=== PATIENT | male | born 1950 | race Caucasian/White ===

== ENCOUNTER 2019-02-20 14:32 | Inpatient (IN) ==
--- NOTE | 2019-02-20 15:38 | Diag Imaging Result Doc PS360 ---
EXAM: CHEST-2 VIEWS HISTORY: sob TECHNIQUE: Chest two views COMPARISON: 06/18/2014 FINDINGS: The lungs are well expanded. The heart is borderline mildly prominent although this is an AP upright exam. The vessels are not distended. There are no infiltrates. No pleural effusions. IMPRESSION: No acute abnormality. Electronically signed by Kris Cunningham 02/20/2019 3:36 PM
[2019-02-20 16:09] LABS: ALLEN TEST YES; BE 2.9 mmoll (-3.0-3.0); BLOOD TYPE ARTERIAL; HCO3-(ACT) 27.1 mmoll (20.0-26.0); METHB 0.9 % (0.0-1.5); O2(CT) 19.2 mL/dL (15.0-23.0); O2HB 93.9 % (95.0-99.0); PCO2(98.6) 49 mmHg (35-45); PO2(98.6) 79 mmHg (60-100); SAMPLE BLOOD; SAO2 96.6 % (95.0-100.0); THB 14.5 g/dL (11.5-17.4); pH(98.6) 7.38 (7.35-7.45)
[2019-02-20 16:10] LABS: MODALITY CANNULA
[2019-02-20 16:32] LABS: URINE SOURCE CLEAN CATCH
--- NOTE | 2019-02-20 16:34 | EKG Report ---
Test Performed on : 02/20/2019 4:22:57 PM Test Reason : syncope Blood Pressure : / mmHG Vent. Rate : 057 BPM Atrial Rate : 057 BPM P-R Int : 188 ms QRS Dur : 094 ms QT Int : 418 ms P-R-T Axes : 089 007 -03 degrees QTc Int : 406 ms Sinus bradycardia. with sinus arrhythmia. T wave abnormality, consider anterior ischemia Abnormal ECG When compared with ECG of 16-OCT-2012 14:26, Vent. rate has decreased BY 35 BPM T wave inversion now evident in Inferior leads T wave inversion now evident in Anterior leads Unconfirmed Result
[2019-02-20 16:43] LABS: BASO# 0.01 X1000 (0.0-0.2); BASO% 0.1 % (0.0-0.8); HEMATOCRIT 41.2 % (42.0-52.0); IMM GRAN# 0.07 X1000 (0.0-0.04); IMM GRAN% 0.7 % (0.0-0.5); LYMPH# 0.94 X1000 (1.2-3.4); LYMPH% 9.4 % (20.5-51.1); MCH 32.7 PG (27-31); MCV 96.3 FL (81-99); MONO# 0.81 X1000 (0.11-0.59); MONO% 8.1 % (1.7-9.3); MPV 10.6 FL (7.4-10.4); NEUT# 8.02 X1000 (1.4-6.5); NEUT% 80.7 % (42.2-75.2); PLT 179 X1000 (130-400); RBC 4.28 XMIL (4.7-6.1); RDW 13.2 % (11.5-14.5); WBC 9.95 X1000 (4.8-10.8)
[2019-02-20 16:48] LABS: BILIRUBIN URINE NEGATIVE (NEGATIVE); BLOOD URINE NEGATIVE (NEGATIVE); COLOR YELLOW; GLUCOSE URINE NEGATIVE (NEGATIVE); KETONE URINE NEGATIVE (NEGATIVE); LEUKOCYTES URINE NEGATIVE (NEGATIVE); NITRITE URINE NEGATIVE (NEGATIVE); PH URINE 5.5; PROTEIN URINE TRACE mg/dL (NEGATIVE); SP GRAVITY URINE 1.012; TURBIDITY URINE CLEAR (CLEAR); UROBILINOGEN URINE NORMAL (NORMAL)
[2019-02-20 16:49] LABS: UR EPITHELIAL CELLS <10 /HPF (<10); URINE BACTERIA NEGATIVE /HPF; URINE RBC <10 /HPF (<10); URINE WBC <10 /HPF (<10)
[2019-02-20 16:54] LABS: AGAP 9; ALB/GLOB RATIO 1.5; ALKALINE PHOSPHATASE 136 U/L (32-122); BUN 21 mg/dL (8-22); CALCIUM 10.3 mg/dL (8.8-10.2); CHLORIDE 95 mmol/L (98-107); CK PROFILE 98 U/L (24-204); COSMO 272; CREATININE 1.1 mg/dL (0.7-1.2); ESTIMATED GFR > 60; GLUCOSE 121 mg/dL (70-104); GOT 23 U/L (10-34); GPT 15 U/L (10-44); POTASSIUM 4.8 mmol/L (3.5-5.1); SODIUM 134 mmol/L (136-145); TCO2 30 mmol/L (25-35); TOTAL BILIRUBIN 0.31 mg/dL (0.20-1.00); TOTAL PROTEIN 6.6 g/dL (6.3-8.3)
[2019-02-20] MEDS ORDERED: NS 500 ML IV ONE (17:06)
--- NOTE | 2019-02-20 19:16 | Diag Imaging Result Doc PS360 ---
EXAM: CT HEAD W/O CONTRAST INDICATION: syncope TECHNIQUE: This exam was performed using automated exposure control, adjustment of mA or kV according to patient size, and/or use of iterative reconstruction technique. COMPARISON: None. FINDINGS: There is mild ventriculomegaly, likely related to atrophy. There is no definite acute infarct given the limited sensitivity of CT versus MRI. There is no discrete intracranial mass, mass effect, or intracranial hemorrhage. There is mild maxillary sinus mucosal thickening. Surrounding soft tissues and bony structures are essentially unremarkable, otherwise. IMPRESSION: Central brain atrophy as described. No definite acute intracranial pathology. Electronically signed by Kalia Hannah 02/20/2019 7:14 PM
--- NOTE | 2019-02-20 19:25 | Diag Imaging Result Doc PS360 ---
EXAM: CT ANGIOGRM PULMONARY ARTERIES INDICATION: sob TECHNIQUE: This exam was performed using automated exposure control, adjustment of mA or kV according to patient size, and/or use of iterative reconstruction technique. Thin section axial images and radial MIPS were obtained. COMPARISON: None. FINDINGS: There are multiple filling defects identified in the main pulmonary arteries and extending into the higher order branches consistent with acute pulmonary emboli. This includes a saddle embolus that extends from the right to the left pulmonary arteries. The clot burden is at least moderate. There is no evidence of aortic aneurysm or dissection. There is no cardiomegaly. There is trace paraseptal emphysema at the anterior peripheries of the upper lobes. No airspace consolidation is identified. There is no evidence of pulmonary infarct. There is no pleural fluid collection and no pneumothorax. Limited views of the upper abdomen are essentially unremarkable. IMPRESSION: Bilateral acute pulmonary emboli with a moderate clot burden as described and no evidence of pulmonary infarct. The findings were discussed with Angelica Ayoub, the cardiovascular technologist, to be immediately relayed to GRADY Tineo at 02/20/2019 7:22 PM Electronically signed by Kalia Hannah 02/20/2019 7:23 PM
[2019-02-20] MEDS ORDERED: LOVENOX 1 MG/KG SUBQ ONE (19:32)
[2019-02-20] MEDS ORDERED: LOVENOX SUBQ ONE (19:50)
--- NOTE | 2019-02-20 21:01 | PROVIDER DOCUMENTATION ---
This chart was entered by Rosa Maria Weber Scribe, acting as scribe for Blane Zamora CRNP. HPI-Syncope/Dizziness - General Chief Complaint: Syncope Stated Complaint: SYNCOPE Time Seen by Provider: 02/20/19 15:05 Source: patient, EMS Allergies/Adverse Reactions: Patient Allergies Allergy/AdvReac Type Severity Reaction Status Date / Time Penicillins Allergy Severe HIVES Verified 02/20/19 15:32 Home Medications: Home Medication List Medication Instructions Recorded Confirmed Last Taken Type Acetaminophen [Tylenol] 500 mg PO PRN PRN 10/16/12 02/20/19 02/16/19 History Aspirin EC 81 mg PO DAILY 10/16/12 02/20/19 02/20/19 History Calcium Carbonate/Vitamin D3 1 each PO BID 10/16/12 02/20/19 02/20/19 History [Oscal 500 + D] Glucosamine 1,000 mg PO BID 10/16/12 02/20/19 02/20/19 History LISINOpril [Prinivil] 10 mg PO DAILY 10/16/12 02/20/19 10/22/12 12:00 History Multivitamin [Multi-Day Vitamins] 1 each PO DAILY 10/16/12 02/20/19 10/22/12 12:00 History Omeprazole [Prilosec] 20 mg PO DAILY 10/16/12 02/20/19 10/22/12 12:00 History PRAVAstatin [Pravachol] 20 mg PO QHS 10/16/12 02/20/19 10/22/12 23:00 History Ranitidine [Zantac] 150 mg PO BID 10/16/12 02/20/19 10/22/12 23:00 History Terazosin [Hytrin] 5 mg PO QHS 10/16/12 02/20/19 02/19/19 History Escitalopram [Lexapro] 10 mg PO DAILY 02/20/19 02/20/19 02/19/19 History Furosemide 40 mg PO QAM 02/20/19 02/20/19 02/20/19 History Metoprolol Succinate E.r. [Toprol 1 tab PO DAILY 02/20/19 02/20/19 Unknown History Xl] Potassium Chloride E.r. [Klor-Con] 1 tab PO DAILY 02/20/19 02/20/19 Unknown History Pregabalin [Lyrica] 75 mg PO QHS 02/20/19 02/20/19 Unknown History Tizanidine [Zanaflex] 1 tab PO QHS 02/20/19 02/20/19 02/19/19 History Tramadol [Ultram] 1 tab PO Q6H PRN 02/20/19 02/20/19 02/19/19 History Triamterene/Hydrochlorothiazid 0.5 tab PO DAILY 02/20/19 02/20/19 Unknown History [Triamterene-Hctz 37.5-25 mg Cp] - History of Present Illness-Syncope/Dizzy Nature of Presenting Problem: Patient is a 68 year old male who presents to the ED via EMS after having a syncopal episode. Patient states he has been having shortness of breath with exertion for 3 days prior. EMS states patient's O2 sat was 84% on room air on their arrival. Patient denies using home O2. If witnessed syncope, by whom?: Prior Episodes: reports: single episode today Onset/Duration: reports: 1-3 hours ago (2 hours ago) Position/Activity at time of episode: reports: standing Symptoms prior to episode: reports: other (shortness of breath) Context: reports: lost consciousness Loss of Consciousness: prolonged (minutes) Current Symptoms: reports: short of breath Recently Seen Here or By Another Healthcare Provider: No Review of Systems - Adult - REVIEW OF SYSTEMS - ADULT ROS:: ROS per family () Constitutional: reports: no symptoms reported. denies: chills, fever, fatique Eyes: reports: no symptoms reported Ears, Nose, Mouth & Throat: reports: no symptoms reported Cardiovascular: reports: no symptoms reported Respiratory: reports: see HPI, shortness of breath. denies: cough, wheezing Gastrointestinal: reports: no symptoms reported Genitourinary: reports: no symptoms reported Musculoskeletal: reports: no symptoms reported Integumentary: reports: no symptoms reported Neurological: reports: see HPI, syncope. denies: dizziness/vertigo, headache/migraines, seizure Psychiatric: reports: no symptoms reported Endocrine: reports: no symptoms reported Hematologic/Lymphatic: reports: no symptoms reported Allergic/Immunologic: reports: no symptoms reported All Other Systems: Reviewed and Negative Past History - Adult - PAST MEDICAL HISTORY-ADULT Review of Records: reports: Old Records Reviewed, Nursing Assessment Review, Medications Reviewed, Social history reviewed & non-contributory. Major Childhood Illnesses: reports: denies history Cardiovascular: reports: HTN Respiratory: reports: denies history Gastrointestinal: reports: denies history Obstetrical/Gynecological: reports: denies history Genitourinary: reports: kidney disease, prostate cancer Musculoskeletal: reports: denies history Neurological: reports: denies history Endocrine/Immune: reports: denies history Other Conditions: reports: denies history - PRIOR SURGERIES/PROCEDURES Surgical/Procedure History: reports: reviewed, not pertinent - IMMUNIZATION STATUS Childhood Immunizations: See Nurse Assessment Flu Vaccine: See Nurse Assessment - FAMILY HISTORY Family History: reviewed, not pertinent - SOCIAL HISTORY Smoking: cigarettes, greater than 1 pack/day Provider spent 3-5 mins advising pt. on dangers of tobacco.: Discussed manners to quit use, and f/u contacts for add'l counseling. Substance Use: denies Living Situation: family Physical Exam-General - PHYSICAL EXAM-ADULT Initial Vital Signs Reviewed: Yes - CONSTITUTIONAL General Appearance: alert, no apparent distress, obese. negative: lethargic - HEAD, EARS, NOSE, MOUTH & THROAT HENMT: normocephalic/atraumatic, moist mucous membranes. negative: angioedema - RESPIRATORY Respiratory: chest non-tender, no respiratory distress, no accessory muscle use, decreased breath sounds (left), wheezing (right). negative: respiratory distress - CARDIOVASCULAR Cardiovascular: normal peripheral pulses, regular rate, rhythm. negative: tachycardia - GASTROINTESTINAL (ABDOMEN) Abdominal Exam: normal bowel sounds, non tender, soft. negative: guarding - LYMPHATIC Lymphatic: no adenopathy - MUSCULOSKELETAL Back Exam: normal inspection Extremity: non-tender, normal inspection. negative: deformity - SKIN Integumentary: normal color, normal turgor, warm/dry. negative: diaphoresis, rash - NEUROLOGIC Neurologic: grossly normal. negative: aphasia, facial droop - PSYCHIATRIC Psych/Mental Status: normal mood/affect, oriented x 3. negative: anxious Progress - PLAN OF CARE/RESULTS Progress/Plan/Lab Results: Vital Signs - 8 hr 02/20/19 14:45 02/20/19 15:11 02/20/19 16:14 Temperature 97.7 F 97.6 F Pulse Rate 67 68 Pulse Rate [Sitting] 76 Pulse Rate [Standing] 80 Pulse Rate [Supine] 69 Respiratory Rate 20 20 Blood Pressure 118/70 94/61 Blood Pressure [Sitting] 92/58 Blood Pressure [Standing] 94/61 Blood Pressure [Supine] 115/77 O2 Sat by Pulse Oximetry 91 L 95 02/20/19 17:32 02/20/19 19:00 02/20/19 19:03 Temperature Pulse Rate 63 60 Pulse Rate [Sitting] Pulse Rate [Standing] Pulse Rate [Supine] Respiratory Rate 14 14 Blood Pressure 120/77 114/66 Blood Pressure [Sitting] Blood Pressure [Standing] Blood Pressure [Supine] O2 Sat by Pulse Oximetry 95 96 99 02/20/19 19:10 02/20/19 19:20 02/20/19 19:30 Temperature Pulse Rate 66 56 L 56 L Pulse Rate [Sitting] Pulse Rate [Standing] Pulse Rate [Supine] Respiratory Rate 18 15 12 Blood Pressure Blood Pressure [Sitting] Blood Pressure [Standing] Blood Pressure [Supine] O2 Sat by Pulse Oximetry 97 98 98 02/20/19 19:32 02/20/19 19:40 02/20/19 19:50 Temperature Pulse Rate 55 L 90 57 L Pulse Rate [Sitting] Pulse Rate [Standing] Pulse Rate [Supine] Respiratory Rate 11 L 15 18 Blood Pressure 90/75 Blood Pressure [Sitting] Blood Pressure [Standing] Blood Pressure [Supine] O2 Sat by Pulse Oximetry 98 97 99 02/20/19 20:00 02/20/19 20:03 02/20/19 20:10 Temperature Pulse Rate 57 L 62 61 Pulse Rate [Sitting] Pulse Rate [Standing] Pulse Rate [Supine] Respiratory Rate 12 16 17 Blood Pressure 119/74 Blood Pressure [Sitting] Blood Pressure [Standing] Blood Pressure [Supine] O2 Sat by Pulse Oximetry 99 99 98 02/20/19 20:20 Temperature Pulse Rate 58 L Pulse Rate [Sitting] Pulse Rate [Standing] Pulse Rate [Supine] Respiratory Rate 12 Blood Pressure Blood Pressure [Sitting] Blood Pressure [Standing] Blood Pressure [Supine] O2 Sat by Pulse Oximetry 100 Laboratory Results - last 24 hr 02/20/19 02/20/19 02/20/19 15:55 15:59 15:59 WBC 9.95 RBC 4.28 L Hgb 14.0 Hct 41.2 L MCV 96.3 MCH 32.7 H MCHC 34.0 RDW Std Deviation 13.2 Plt Count 179 MPV 10.6 H Immature Gran % (Auto) 0.7 H Neut % (Auto) 80.7 H Lymph % (Auto) 9.4 L [place] % (Auto) 8.1 Eos % (Auto) 1.0 Baso % (Auto) 0.1 Immature Gran # (Auto) 0.07 H Neut # (Auto) 8.02 H Lymph # (Auto) 0.94 L [place] # (Auto) 0.81 H Eos # (Auto) 0.10 Baso # (Auto) 0.01 Specimen Type Sample Site pH pCO2 pO2 HCO3 Base Excess Oxyhemoglobin ABG O2 Sat (Calculated) ABG O2 Saturation ABG Carboxyhemoglobin ABG Methemoglobin Keith Test A-a O2 Difference Total Hemoglobin Lactate Liter Flow Blood Gas Modality FiO2 % Sodium 134 L Potassium 4.8 Chloride 95 L Carbon Dioxide 30 Anion Gap 9 BUN 21 Creatinine 1.1 Estimated GFR/1.73 m2 > 60 BUN/Creatinine Ratio 19 Glucose 121 H POC Glucose 107 H Calculated Osmolality 272 Calcium 10.3 H Total Bilirubin 0.31 AST 23 ALT 15 Alkaline Phosphatase 136 H Creatine Kinase 98 Troponin T Total Protein 6.6 Albumin 4.0 Globulin 2.6 Albumin/Globulin Ratio 1.5 Urine Source Urine Color Urine Turbidity Urine pH Ur Specific [place] Urine Protein Ur Glucose (Stick) Ur Ketones (Stick) Urine Blood Urine Nitrite Urine Bilirubin Urobilinogen Dipstick Urine Leukocytes Urine WBC (Auto) Urine RBC (Auto) U Epithel Cells (Auto) Urine Bacteria (Auto) 02/20/19 02/20/19 02/20/19 15:59 15:59 16:00 WBC RBC Hgb Hct MCV MCH MCHC RDW Std Deviation Plt Count MPV Immature Gran % (Auto) Neut % (Auto) Lymph % (Auto) [place] % (Auto) Eos % (Auto) Baso % (Auto) Immature Gran # (Auto) Neut # (Auto) Lymph # (Auto) [place] # (Auto) Eos # (Auto) Baso # (Auto) Specimen Type ARTERIAL Sample Site L RADIAL pH 7.38 pCO2 49 H pO2 79 HCO3 27.1 H Base Excess 2.9 Oxyhemoglobin 93.9 L ABG O2 Sat (Calculated) 19.2 ABG O2 Saturation 96.6 ABG Carboxyhemoglobin 1.90 ABG Methemoglobin 0.9 Keith Test YES A-a O2 Difference 116.0 Total Hemoglobin 14.5 Lactate 0.80 Liter Flow 4.0 Blood Gas Modality [place] FiO2 % 36.0 Sodium Potassium Chloride Carbon Dioxide Anion Gap BUN Creatinine Estimated GFR/1.73 m2 BUN/Creatinine Ratio Glucose POC Glucose Calculated Osmolality Calcium Total Bilirubin AST ALT Alkaline Phosphatase Creatine Kinase Troponin T < 0.010 Total Protein Albumin Globulin Albumin/Globulin Ratio Urine Source CLEAN CATCH Urine Color YELLOW Urine Turbidity CLEAR Urine pH 5.5 Ur Specific [place] 1.012 Urine Protein TRACE A Ur Glucose (Stick) NEGATIVE Ur Ketones (Stick) NEGATIVE Urine Blood NEGATIVE Urine Nitrite NEGATIVE Urine Bilirubin NEGATIVE Urobilinogen Dipstick NORMAL Urine Leukocytes NEGATIVE Urine WBC (Auto) <10 Urine RBC (Auto) <10 U Epithel Cells (Auto) <10 Urine Bacteria (Auto) NEGATIVE Orders Category Date Time Status Nursing- Obtain EKG ONCE Care 02/20/19 15:06 Active Orthostatic Vital Signs NOW Care 02/20/19 15:12 Active CHEST-2 VIEWS [RAD] Stat Exams 02/20/19 15:[address] ANGIOGRM PULMONARY ARTERIES [CT] Stat Exams 02/20/19 16:[address] HEAD W/O CONTRAST [CT] Stat Exams 02/20/19 16:26 Completed ABG [RESP] Routine Lab 02/20/19 16:00 Completed CBC WITH DIFF [HEME] Stat Lab 02/20/19 15:59 Completed CK PROFILE [SP CHEM] Stat Lab 02/20/19 15:59 Completed COMPREHENSIVE METABOLIC PANEL [CHEM] Stat Lab 02/20/19 15:59 Completed TROPONIN T Stat Lab 02/20/19 15:59 Completed URINALYSIS W/POSS RFLX CULT [URINALYSIS] Stat Lab 02/20/19 15:59 Completed 0.9% Sodium Chloride Inj [Ns] 500 ml Med 02/20/19 17:06 Discontinued IV 250 mls/hr Enoxaparin 1 mg/kg [Lovenox 1 mg/kg] Med 02/20/19 19:32 Discontinued 1 each SUBQ NOW ONE Enoxaparin [Lovenox] Med 02/20/19 19:50 Discontinued 120 mg SUBQ ONCE ONE EKG [EKG] Stat Ther 02/20/19 15:06 Draft Transfer/Admit Order [TRANSFER] Routine Transfer 02/20/19 20:48 Ordered Result Diagrams: 02/20/19 15:59 02/20/19 15:59 - REASSESSMENT Reassessment #1 Time Reassessed: 19:38 (reviewed results with pt and need for admission. Pt resting o2 sat 95% on 4L. BP 90/75) - EKG 1 Time of EKG reading by physician:: 16:22 EKG Read and Signed by:: Trace Morse EKG Interpretation (*Must complete 3 of following elements*): Abnormal Rate: 57 Rhythm: sinus bradycardia with sinus arrhythmia [place]: normal SD Interval: normal Comments: T wave abnormality, consider anterior ischemia - XRAY 1 XRAY Study: Chest Impression: See EMR Report ( EXAM: CHEST-2 VIEWS HISTORY: sob TECHNIQUE: Chest two views COMPARISON: 06/18/2014 FINDINGS: The lungs are well expanded. The heart is borderline mildly prominent although this is an AP upright exam. The vessels are not distended. There are no infiltrates. No pleural effusions. IMPRESSION: No acute abnormality. Electronically signed by Kris Cunningham 02/20/2019 3:36 PM 02/20/19 1536 Interpreting Physician: Kris Cunningham MD Dictated Date/Time: 02/20/19 1535 cc: Blane Zamora; Chandu Ruiz) - CT/MRI 1 CT Study: Head Impression: See EMR Report (FINDINGS: There is mild ventriculomegaly, likely related to atrophy. There is no definite acute infarct given the limited sensitivity of CT versus MRI. There is no discrete intracranial mass, mass effect, or intracranial hemorrhage. There is mild maxillary sinus mucosal thic kening. Surrounding soft tissues and bony structures are essentially unremarkable, otherwise. IMPRESSION: Central brain atrophy as described. No definite acute intracranial pathology.) - CONSULTS/PCP/HOSPITALIST Notification #1 *Consult/PCP/Hospitalist*: Dr Mondragon, hospitalist Time Discussed: 20:08 Consult Disposition: Admit Departure - Departure Date of Disposition Decision: 02/20/19 Time of Disposition Decision: 19:41 DIAGNOSIS: Saddle embolus, SOB (shortness of breath) Syncope Qualifiers: Syncope type: unspecified Qualified Code(s): R55 - Syncope and collapse Disposition: ADMITTED INPATIENT 09 Certified Medical Emergency: Emergent Condition: Fair - Critical Care Note This patient required my direct & personal management of CC.: Yes Total Time (mins): 40 Critical Care Statement: This patient required my direct personal management to treat or rule out processes, the absence of which, could potentiallly result in sudden, clinically significant life or limb threatening deterioration. Attestation - Physician/ NEHAL Attestation Patient care was provided by Advanced Practice Provider:: Yes Advanced Practice Provider:: Blane Zamora Advanced Practice Provider documentation review:: The Mid-level provider documentation, treatment plan and medical decision making was reviewed by the physician who agrees with all treatment and medical decision making by the MLP. The physician spent face to face time with patient:: No Advanced Practice Provider documentation review:: Supervising physician onsite and consulted in the evaluation and care of this patient. The physician did not have a face to face encounter with the patient. This chart was documented by the indicated scribe, (Rosa Maria Weber Scribe) and accurately reflects the services I performed and decisions made by , Blane Zamora, GRADY, as attested by the provider's signature.
--- NOTE | 2019-02-20 21:58 | HISTORY AND PHYSICAL ---
PRIMARY CARE PHYSICIAN: Dr. Chandu Ruiz. CHIEF COMPLAINT: Shortness of breath x3 weeks. HISTORY OF PRESENTING ILLNESS: A 68-year-old male, with a history of hypertension, hyperlipidemia, prostate cancer, depression, who had presented to the emergency department with 3 weeks history of having intermittent shortness of breath. The patient states over the past several days, it was worsening and he was having some chest discomfort, and subsequently had come to the emergency department. In the ED, he was evaluated and he was having episodes where he was somewhat going to collapse, and subsequently he underwent a CT angiogram. The results showed that he had bilateral pulmonary emboli. Subsequently, he will require admission to ICU for further evaluation and management. At the time of my examination, patient denied any headache, fever, chills, hemoptysis, melena, weight changes, but complained of shortness of breath and chest discomfort. PAST MEDICAL HISTORY: Includes: 1. Hypertension. 2. Hyperlipidemia. 3. Prostate cancer. 4. Depression. 5. GERD. PAST SURGICAL HISTORY: 1. Cholecystectomy. 2. Appendectomy. 3. Radical prostatectomy. ALLERGIES: Penicillin. CURRENT MEDICATIONS: 1. Acetaminophen 500 mg p.o. daily p.r.n. 2. Aspirin 81 mg p.o. daily. 3. Lexapro 10 mg p.o. daily. 4. Lasix 40 mg p.o. q.a.m. 5. Lisinopril 10 mg p.o. daily. 6. Metoprolol 50 mg p.o. daily. 7. Omeprazole 20 mg p.o. daily. 8. Pravastatin 20 mg p.o. at bedtime. 9. Lyrica 75 mg p.o. at bedtime. 10. Terazosin 5 mg p.o. at bedtime. 11. Zanaflex 4 mg p.o. at bedtime. 12. Ultram 50 mg p.o. q.6 hours. 13. Triamterene HCT 37.5/25 one/half tablet p.o. daily. SOCIAL HISTORY: No history of smoking. Admits to social alcohol use. Denies any illicit drug use. FAMILY HISTORY: No history of coronary disease. REVIEW OF SYSTEMS: A 14 point review of systems as listed in HPI. Other systems negative. PHYSICAL EXAMINATION: GENERAL: Cooperative, friendly male. He is resting more comfortably now. VITAL SIGNS: Temperature 97.6 degrees, pulse 68, respirations 20, blood pressure 94/61. HEENT: Atraumatic, normocephalic. Extraocular movements intact. PERRLA. NECK: No masses. CHEST: Clear to auscultation. CARDIOVASCULAR: Regular rate and rhythm. ABDOMEN: Soft. Positive bowel sounds. EXTREMITIES: +1 edema. NEUROLOGIC: He is awake, alert, oriented x3. : No bladder distention. SKIN: Warm. LABORATORIES AND STUDIES: WBC 9.95, hemoglobin 14.0, hematocrit 41.2, platelets 179,000. Sodium 134, potassium 4.8, chloride 95, CO2 is 30, BUN is 21, creatinine is 1.1, glucose is 121, troponin is 0.010. Pulmonary arteriogram shows bilateral acute pulmonary emboli with moderate clot burden. ASSESSMENT: This is a 68-year-old male with a history of hypertension, hyperlipidemia, prostate cancer, and gastroesophageal reflux disease, who had presented to the emergency department with a 3 week history of having intermittent shortness of breath. He was evaluated in the emergency department. He had a syncopal episode. He had a CT angiogram done which did show bilateral pulmonary emboli. Subsequently, he will require admission for further management. 1. Bilateral acute pulmonary emboli. 2. Hypertension. 3. Hyperlipidemia. 4. Gastroesophageal reflux disease. PLAN: 1. We will admit patient to ICU. 2. The patient will be started on Lovenox 1 mg/kg subcutaneously every 12 hours. 3. Check echocardiogram. 4. Will consult with motion picture director. 5. Will monitor blood pressure closely. 6. Restart his home medications. 7. Patient will be on Lovenox. 8. Will continue to follow and reassess, and make further recommendation based on patient's clinical course. cc: Jatinder Mondragon MD
[2019-02-20] MEDS ORDERED: PRAVACHOL PO SCH (22:31)
[2019-02-20] MEDS: PRAVACHOL PO SCH (23:31)
[2019-02-20] MEDS: HYTRIN PO SCH (23:31)
[2019-02-21 07:06] LABS: HEMATOCRIT 41.3 % (42.0-52.0); MCH 32.8 PG (27-31); MCHC 33.9 g/dL (33-37); MCV 96.7 FL (81-99); MPV 10.9 FL (7.4-10.4); PLT 183 X1000 (130-400); RBC 4.27 XMIL (4.7-6.1); RDW 13.1 % (11.5-14.5); WBC 10.17 X1000 (4.8-10.8)
[2019-02-21 07:07] LABS: BASO# 0.02 X1000 (0.0-0.2); BASO% 0.2 % (0.0-0.8); EOS# 0.14 X1000 (0.0-0.7); EOS% 1.4 % (0.0-10.0); IMM GRAN# 0.03 X1000 (0.0-0.04); IMM GRAN% 0.3 % (0.0-0.5); LYMPH# 1.74 X1000 (1.2-3.4); LYMPH% 17.1 % (20.5-51.1); MONO# 1.33 X1000 (0.11-0.59); MONO% 13.1 % (1.7-9.3); NEUT# 6.91 X1000 (1.4-6.5); NEUT% 67.9 % (42.2-75.2)
[2019-02-21 07:31] LABS: AGAP 15; BUN 17 mg/dL (8-22); CALCIUM 9.1 mg/dL (8.8-10.2); CHLORIDE 100 mmol/L (98-107); COSMO 279; CREATININE 0.8 mg/dL (0.7-1.2); ESTIMATED GFR > 60; GLUCOSE 92 mg/dL (70-104); POTASSIUM 4.2 mmol/L (3.5-5.1); SODIUM 139 mmol/L (136-145); TCO2 24 mmol/L (25-35)
[2019-02-21] MEDS ORDERED: LOVENOX SUBQ SCH (08:00)
[2019-02-21] MEDS: ZANTAC PO SCH ×3 (08:25→21:34)
[2019-02-21] MEDS: ASPIRIN EC PO SCH (08:25)
[2019-02-21] MEDS: PRILOSEC PO SCH (08:25)
[2019-02-21] MEDS: LEXAPRO PO SCH (08:25)
[2019-02-21] MEDS: LYRICA PO SCH ×2 (08:26→21:34)
[2019-02-21] MEDS ORDERED: LASIX PO SCH (09:00)
[2019-02-21] MEDS ORDERED: PRINIVIL PO SCH (09:00)
[2019-02-21] MEDS ORDERED: MORPHINE IV PRN (12:19)
--- NOTE | 2019-02-21 13:14 | PROGRESS NOTE ---
DATE: 02/21/2019 SUBJECTIVE: This morning Mr. Jacob referred to be doing slightly better. He has some cramps in his legs, but according to him, his shortness of breath is getting better. Mr. Jacob got admitted yesterday. After he went to use the restroom, he just passed out. He came to the emergency department where he was evaluated including a CT of the lungs which revealed bilateral PE with saddle. I have been told that he has bilateral lower extremity DVT's as well. OBJECTIVE: His current vitals, blood pressure is 122/80, pulse 70, respirations 18, and temperature is 97.8. General: Mr. Jacob is a 68-year-old elderly male. He is in bed in no distress. Mucosa is pink and moist. Anicteric. Acyanotic. Neck: Neck is supple. Lungs: Chest with good air entry bilaterally. There was no crepitations. No rhonchi. Cardiovascular: Regular rate and rhythm. Abdomen: Soft and distended globally, but nontender. There are some old scars on the anterior abdominal wall from previous laparoscopic surgeries. Extremities: No pedal edema. REGISTERED NURSE: Patient is awake, alert, and oriented. LABORATORY DATA: CBC is reviewed and is unremarkable. Chemistry is also reviewed, and is completely normal. Patient's pro B is 2772. Initial troponin which was done was unremarkable. CURRENT MEDICATIONS: Have all been reviewed. ASSESSMENT: 1. Syncope episode at home secondary to bilateral PE. 2. Bilateral PE with saddle associated with DVT's. The patient is currently on Lovenox therapeutic dose. 3. Hypertension controlled. Patient actually came in and had some readings which were low at some point. 4. Dyslipidemia. PLAN: So in general, Mr. Jacob had I understand bilateral DVT's and also moderate to severe clot burden in his lungs. He is currently on therapeutic Lovenox. His vitals seems to be stable. We have consulted Pulmonary Medicine. We have also consulted Surgery to evaluate for possible filter if indicated. Also, Heme Onc to evaluate him to rule out any underlying thrombophilic tendencies. Of note, Mr. Jacob has remote history of prostate cancer and is status post radical prostatectomy. cc: Freedom Clinton MD
[2019-02-21] MEDS: NORCO-5 PO PRN ×2 (16:35→20:25)
--- NOTE | 2019-02-21 17:07 | HEMO/ONC CONSULTATION ---
DATE: 02/21/2019 REASON FOR CONSULTATION: Saddle emboli with DVT. CHIEF COMPLAINT: Shortness of breath for approximately 3 weeks. HISTORY OF PRESENT ILLNESS: This is a 68-year-old male with a history of hypertension, hyperlipidemia, prostate cancer, and depression who presented to the emergency department with a 3- week history of intermittent shortness of breath. The patient has not had any recent immobilization. The patient states over the past several days it has worsened. He has had chest discomfort which finally brought him to the ED. He was feeling syncopal in the ED and had a CT angiogram. The results showed that he had bilateral pulmonary emboli. PAST MEDICAL HISTORY: Hypertension, hyperlipidemia, prostate cancer, depression, GERD. PAST SURGICAL HISTORY: Cholecystectomy, appendectomy, radical prostatectomy. ALLERGIES: Penicillin. CURRENT MEDICATIONS: Acetaminophen, aspirin, Lexapro, Lasix, lisinopril, metoprolol, omeprazole, pravastatin, Lyrica, terazosin, Zanaflex, Ultram, triamterene. SOCIAL HISTORY: Patient denies smoking. Admits to social alcohol use. Denies any illicit drug. REVIEW OF SYSTEMS: Negative other than what is mentioned in HPI. PHYSICAL EXAMINATION VITAL SIGNS: Temperature 97.8 degrees, pulse rate 69, respiratory rate 12, blood pressure 88/61, O2 saturation 100% on 4 L via nasal cannula, 6/10 bilateral foot pain. Cardiovascular: Normal S1, S2. Heart rate regular rhythm. Respiratory: Chest clear to auscultation. No signs of respiratory distress. Abdomen: Soft, nontender, without distention. Extremities: Have +1 edema. Skin: Warm, dry, and intact. LABORATORY: WBC 10.17, hemoglobin 14, hematocrit 41.3, platelet count 183,000. ANC 6.91. ProBNP 2,772. RADIOLOGY: CT angiogram pulmonary arteries shows bilateral acute pulmonary emboli with a moderate clot burden as described and no evidence of pulmonary infarct. Head CT: Central brain atrophy. No acute intracranial pathology. ASSESSMENT: 1. Bilateral pulmonary emboli moderate burden and saddle embolus. 2. Lower extremity DVT. 3. Right heart strain on ECHO PLAN: Dr. Avina suggested that the Lovenox be changed to heparin. He also requests that a retrievable IVC filter be placed for the patient. He has discussed this with Dr. Telles and Dr. Clinton. Continue to treat the patient medically. We will evaluate labs. We will continue to follow. Dictated by GRADY Guadalupe for Norman Avina MD cc: Norman Avina MD [facility]
[2019-02-21] MEDS ORDERED: HEPARIN IV SCH (18:00)
[2019-02-21] MEDS ORDERED: [UNRECOGNIZED DRUG - OTHER] IV SCH (18:00)
[2019-02-21] MEDS ORDERED: HEPARIN IV ONE (18:40)
[2019-02-21] MEDS: ULTRAM PO PRN (19:47)
--- NOTE | 2019-02-21 21:02 | CONSULTATION ---
DATE OF CONSULTATION: 02/21/2019 REQUESTING PROVIDER: Dr. Jatinder Mondragon. REASON FOR CONSULTATION: Pulmonary embolism. HISTORY OF PRESENT ILLNESS: This is a 68-year-old male with a medical history of hypertension, hyperlipidemia, prostate cancer, depression and gastroesophageal reflux disease. He presented to the ER yesterday afternoon via EMS with one episode of syncope and acute dyspnea on exertion for 3 days. Initial workup in the ER revealed bilateral acute pulmonary emboli with moderate clot burden, including a saddle embolus that extends from the right to the left pulmonary arterials. He has been admitted to the ICU for further evaluation and management. The patient currently is lying in bed, with no acute distress. He received Lovenox 1 mg/kg once yesterday and 120 mg Lovenox this morning. He reports chronic bilateral lower extremity pitting edema with burning sensation. He also has intermittent coughing spells and he already had several episodes of vomiting because of coughing spells. He reports palpitations but no chest pain, wheezing, hemoptysis, fever, chills or noticeable weight change. PAST MEDICAL HISTORY: 1. Hypertension. 2. Hyperlipidemia. 3. Prostate cancer, status post radiation and radical retropubic prostatectomy on 10/23/[address] Moreno. 4. Depression. 5. Gastroesophageal reflux disease. PAST SURGICAL HISTORY: 1. Cholecystectomy. 2. Appendectomy. 3. Radical retropubic prostatectomy on 10/23/[address] Moreno. SOCIAL HISTORY: The patient lives at home with his . He used to smoke daily 1 pack a day for about 40 years, and he quit smoking 5-6 years ago. He drinks once in a while, and he did get drunk before but he denies binge drinking. He has no history of illicit drug use. He has 1 dog indoors as a pet for about 4 years. FAMILY HISTORY: Reviewed and noncontributory. ALLERGIES: Penicillin. REVIEW OF SYSTEMS: A 10-point review of systems was conducted and the pertinence is listed within the HPI, otherwise noncontributory. PHYSICAL EXAMINATION: Vital signs: Temperature 98.6, blood pressure 101/77, pulse 62, respiratory rate 14, oxygen saturation 100% on nasal cannula at 4 L.General: Pleasant and cooperative, resting in bed with no acute distress. HEENT: Atraumatic, normocephalic. Trachea midline. Mucosa pink and moist. Respiratory: Even and unlabored. Symmetrical excursion. Auscultation revealed mild diffuse anterior expiratory wheezing, mainly on the left side of the lung. Cardiovascular: Regular rate and rhythm. Gastrointestinal: Soft, nontender. Distended, obese. Normoactive bowel sounds in all 4 quadrants. Extremities: Bilateral lower extremity trace edema. Bilateral feet pink and warm to touch. No cyanosis. No clubbing. Dorsalis pedis 1+ bilaterally. Neurologic: Alert and oriented x3. Speech fluent. Follows commands. LABORATORY DATA: White blood cells 10.17, hemoglobin 14.0, hematocrit 41.3, platelets 183,000. Sodium 139, potassium 4.2, chloride 100, carbon dioxide 24, BUN 17, creatinine 0.8, glucose 92. ProBNP 2772. ASSESSMENT: This is a 68-year-old male with medical history of hypertension, hyperlipidemia, prostate cancer, depression and gastroesophageal reflux disease. He has been admitted to the intensive care unit with bilateral acute pulmonary emboli. 1. Acute hypoxic respiratory failure. 2. Syncopal episode at home. 3. Bilateral pulmonary emboli with saddle. 4. Left lower extremity deep venous thrombosis. PLAN: 1. Continue supplemental oxygen. 2. Currently patient on Lovenox 120 mg twice a day. 3. Follow up with labs including PT gene mutation, protein S and C activity, lupus inhibitor, factor V Leiden and antithrombin III activity. 4. Continue GI prophylaxis. 5. Further recommendations pending hospital course. Thank you for the courtesy of this consult. Dictated by GRADY Rivera for Acacia Hilario MD cc: GRADY Rivera MD [facility]
[2019-02-21] MEDS: HYTRIN PO SCH (21:33)
[2019-02-21] MEDS: PRAVACHOL PO SCH (21:34)
--- NOTE | 2019-02-22 00:22 | ECHO REPORT ---
ORDER DATE: 02/20/2019 MEASUREMENTS: Left ventricular internal diameter in diastole 5.1. Aortic root 3.3. Left atrium 4.0. SUMMARY: 1. Technically difficult study due to limited acoustic window quality. 2. Aortic valve was without evidence of structural abnormality and appears to open adequately on 2-dimensional images. Peak gradient across the aortic valve is approximately 10 mmHg. Mitral and tricuspid valves are without evidence of structural abnormality, while pulmonic valve was not well demonstrated. There is mild tricuspid regurgitation. Estimated systolic PA pressure by Doppler is 95 mmHg, suggesting severe pulmonary hypertension. Aortic root is normal in size. 3. Normal left ventricular chamber size with mild concentric left hypertrophy suggested. Estimated left ejection fraction appears to be at least 65%. No regional wall motion abnormalities are evident. Left atrium is borderline enlarged. Right atrium is mildly enlarged. Right ventricle is moderately enlarged with reduced right ventricular systolic function. 4. No pericardial effusion. 5. Appearance of inferior vena cava suggests elevated central venous pressure. CONCLUSIONS: 1. Technically difficult study. 2. Mild tricuspid regurgitation with severe pulmonary hypertension by Doppler. 3. Mild concentric left hypertrophy with estimated left ejection fraction at least 65%. 4. Borderline left atrial enlargement. 5. Mild right atrial enlargement and moderate right ventricular enlargement with diminished right ventricular systolic function. 6. Elevated central venous pressure is suggested. cc: MD Jatinder Blake MD
[2019-02-22 05:46] LABS: HEMATOCRIT 45.8 % (42.0-52.0); HEMOGLOBIN 15.6 g/dL (14.0-18.0); MCH 32.6 PG (27-31); MCHC 34.1 g/dL (33-37); MCV 95.8 FL (81-99); MPV 10.7 FL (7.4-10.4); RBC 4.78 XMIL (4.7-6.1); RDW 13.3 % (11.5-14.5); WBC 9.72 X1000 (4.8-10.8)
[2019-02-22 06:57] LABS: AGAP 14; ALBUMIN 3.6 g/dL (3.5-5.0); ALKALINE PHOSPHATASE 135 U/L (32-122); BUN 19 mg/dL (8-22); CALCIUM 9.4 mg/dL (8.8-10.2); CHLORIDE 93 mmol/L (98-107); COSMO 273; CREATININE 0.8 mg/dL (0.7-1.2); ESTIMATED GFR > 60; GLUCOSE 117 mg/dL (70-104); GOT 19 U/L (10-34); GPT 12 U/L (10-44); POTASSIUM 3.2 mmol/L (3.5-5.1); SODIUM 135 mmol/L (136-145); TCO2 28 mmol/L (25-35); TOTAL BILIRUBIN 0.57 mg/dL (0.20-1.00); TOTAL PROTEIN 7.2 g/dL (6.3-8.3)
[2019-02-22] MEDS: ZANTAC PO SCH ×2 (08:45→20:35)
[2019-02-22] MEDS: NORCO-5 PO PRN ×3 (08:45→20:34)
[2019-02-22] MEDS: ASPIRIN EC PO SCH (08:46)
[2019-02-22] MEDS: LEXAPRO PO SCH (08:46)
[2019-02-22] MEDS: PRILOSEC PO SCH (08:46)
--- NOTE | 2019-02-22 11:51 | PROGRESS NOTE ---
DATE: 02/22/2019 SUBJECTIVE: This morning Mr. Jacob referred to be doing a whole lot better. No chest pain. No shortness of breath. He did complain of some cough, but no bloody expectoration. He also had mild bleeding through the nose. OBJECTIVE: Vital signs: Blood pressure is 114/78, pulse of 92, respirations 20, temperature 99.0 degrees, patient was saturating about 94% on 4 L of nasal cannula. General exam: Mr. Jacob is a 68-year-old gentleman. He is in bed in no distress. HEENT: Mucosa is pink and moist. Anicteric. Acyanotic. Neck: Supple. Chest: Good air entry bilateral. No crepitations. No rhonchi. Cardiovascular: Regular rate and rhythm. GI: Abdomen is soft. It is globally distended, but nontender. Some old scars on the anterior abdominal wall from previous laparoscopic surgeries. Extremities: No pedal edema. MASTER BAKER: Patient is awake, alert and oriented. There is no focal neurological deficit. LABORATORY DATA: CBC is reviewed and is normal. The patient has a PTT this morning that was more than 250 and heparin was withheld. Chemistry is also reviewed. Sodium is 135, potassium is 3.2. Rest of chemistry is normal. IMAGING STUDIES: An echocardiogram has been reviewed. The patient did have ejection fraction of 65% with mild left hypertrophy. There is also moderate right ventricular enlargement with diminished right ventricle systolic function. ASSESSMENT: 1. Syncope. Episode at home, secondary to pulmonary embolus. 2. Bilateral pulmonary embolus with saddle associated with deep vein thrombosis. Patient is currently on transition to heparin drip. 3. Hypertension, controlled. 4. Dyslipidemia. 5. Right heart failure secondary to massive pulmonary embolus noted. We will try to avoid hypotension and dehydration in this patient due to the right heart failure. PLAN: So for today we are going to continue with the heparin drip. Mr. Jacob will continue to be in the ICU. Hopefully after 24 hours, we will be able to transition him to oral anticoagulation. The patient has been evaluated by Hem-Onc, Pulmonary Medicine and Surgery at this point. Of note, I was able to reach out to Dr. Choi yesterday, who is the ICU attendant in [facility], to see if they would want to get Mr. Jacob over there for any further interventions. His recommendation was that since the patient is already on Lovenox, was on anticoagulation that was all that needed to be done, and that he did not think transfer was necessary. I also reached out to [facility] yesterday. Unfortunately, at that time, there was no bed. For now I think Mr. Jacob is not hypotensive anymore. He is clinically stable, so we will continue with the anticoagulation. cc: Freedom Clinton MD
[2019-02-22] MEDS: HEPARIN IV SCH (12:24)
[2019-02-22] MEDS: [UNRECOGNIZED DRUG - OTHER] IV SCH (12:24)
--- NOTE | 2019-02-22 12:36 | HEMO/ONC PROGRESS NOTE ---
DATE: 02/22/2019 SUBJECTIVE: Mr. Jacob is sitting up in bed this morning, finishing his breakfast. He states his appetite is good. He states he is less short of breath than he was yesterday. He feels he has had some improvement. He denies any significant complaint. He had no acute events overnight. OBJECTIVE: VITAL SIGNS: Temperature 99 degrees, pulse rate 92, respiratory rate 20, blood pressure 114/78, O2 saturation 94% on nasal cannula at 4 L. He is in 0/10 pain. PHYSICAL EXAMINATION: General: Awake, alert, and oriented, in no acute distress. Well- developed, well-nourished. Skin: Warm, dry, and pale. No rashes or significant lesions noted. It is noted that the patient has small wounds on his hands and feet. HEENT: Sclerae is anicteric. PERRLA. Oral mucosa is pink and moist. Cardiovascular: Normal S1, S2. Heart rate and rhythm is regular. Respiratory: Lung sounds are clear. No adventitious breath sounds noted. No signs of respiratory distress. Gastrointestinal: Abdomen is soft, nontender. It is distended. Extremities: No edema noted. Neurological: No focal motor deficits noted. LABORATORY DATA: WBCs 9.72, hemoglobin 15.6, hematocrit 45.8, platelet count 194,000. Sodium 135, potassium 3.2, alkaline phosphatase 135. ASSESSMENT: 1. Bilateral pulmonary embolus with saddle associated with deep vein thrombosis. PLAN: The patient remains on IV heparin. We will continue to follow the patient and wait on hypercoag work up results. Dictated by GRADY Guadalupe for Norman Avina MD cc: Norman Avina MD [facility]
--- NOTE | 2019-02-22 18:32 | CONSULTATION ---
DATE OF CONSULTATION: 02/22/2019 SUBJECTIVE: Mr. Vipin Jacob is a 68-year-old, white male, who was admitted to our ICU with shortness of breath and chest pain, and a CT angiogram which suggests pulmonary emboli. There is also evidence that he has a deep venous thrombosis involving both of his lower extremities. We were asked to evaluate him for possible inferior vena cava filter. PAST MEDICAL HISTORY: High blood pressure, prostate cancer, gastroesophageal reflux disease. PAST SURGICAL HISTORY: Cholecystectomy, appendectomy, radical prostatectomy, a history of prostate cancer. ALLERGIES: Penicillin. MEDICATIONS: He is on multiple medications, which include aspirin, Lexapro, Lasix, lisinopril, metoprolol, omeprazole, pravastatin, Lyrica, terazosin, Zanaflex, Ultram, and triamterene. SOCIAL HISTORY: No smoking. Social alcohol use. His brother was sitting at the bedside in the ICU. FAMILY HISTORY: Coronary disease. REVIEW OF SYSTEMS: A 14-point review of systems was performed and was essentially negative, except for the history of present illness. PHYSICAL EXAMINATION: He is in our ICU. He is awake, cooperative, sitting up, has mild shortness of breath. He is hemodynamically satisfactory. No jaundice. He wears a hurt. No oral lesions. No cervical or supraclavicular lymphadenopathy. His heart has a regular rate. Lungs are mostly clear to auscultation. His abdomen is soft without tenderness. No costovertebral tenderness. Rectal exam was not performed. He does have palpable femoral pulses. He has bilateral lower extremity edema. Neurologically, he has no focal deficits. IMPRESSION: Pulmonary emboli, symptomatic, with evidence of a deep venous thrombosis of both lower extremities. PLAN: He is on IV heparin drip and clinically he is improving. He has no contraindication to anticoagulation, and for that reason, we will not proceed with inferior vena cava filter, but recommend treating as you are with IV heparin and then converting it to a p.o. blood thinner. He is also being checked for any hypercoagulable state. cc: Irish Telles MD
[2019-02-22] MEDS: LYRICA PO SCH (20:35)
[2019-02-22] MEDS: PRAVACHOL PO SCH (20:35)
[2019-02-22] MEDS: HYTRIN PO SCH (21:56)
[2019-02-23 05:07] LABS: HEMATOCRIT 40.6 % (42.0-52.0); MCH 32.9 PG (27-31); MCHC 34.5 g/dL (33-37); MCV 95.3 FL (81-99); MPV 10.2 FL (7.4-10.4); RBC 4.26 XMIL (4.7-6.1); RDW 12.8 % (11.5-14.5); WBC 6.91 X1000 (4.8-10.8)
[2019-02-23] MEDS: NORCO-5 PO PRN ×3 (06:03→23:36)
[2019-02-23] MEDS: LEXAPRO PO SCH (08:44)
[2019-02-23] MEDS: PRILOSEC PO SCH (08:44)
[2019-02-23] MEDS: ZANTAC PO SCH ×2 (08:44→20:04)
--- NOTE | 2019-02-23 09:08 | HEMO/ONC PROGRESS NOTE ---
DATE: 02/23/2019 SUBJECTIVE: Mr. Jacob is awake and alert this morning, eating his breakfast. He states his appetite remains good. He feels okay this morning. He had no significant complaints. He had no acute events overnight. OBJECTIVE: Vital signs: Temperature 98.2 degrees, pulse rate 74, respiratory rate 14, blood pressure 112/66, O2 saturation 97 on 4 L via nasal cannula. He is in 5/10 left foot pain. General: He is awake, alert and oriented, in no acute distress. Well developed, well nourished. Skin: Warm, dry, and pale. No jaundice. No rashes or significant lesions noted. He does not have small abrasions to his hands and feet. HEENT: Sclera is anicteric. PERRLA. Oral mucosa is pink and moist. Cardiovascular: Normal S1, S2. Heart rate and rhythm is regular. Respiratory: Lung sounds are clear. No adventitious breath sounds noted. No signs of respiratory distress. Mild shortness of breath with exertion. Gastrointestinal: Abdomen is soft, nontender, with mild distention. Neurological: No focal motor deficits. LABORATORY DATA: WBC 6.91, hemoglobin 14.0, hematocrit 40.6, platelet count 182,000. ASSESSMENT: Bilateral saddle pulmonary embolus with deep vein thrombosis. PLAN: Keep the patient on IV heparin. Convert to Xarelto when appropriate. We will continue to monitor and evaluate labs. Please call if needed over the weekend. Dictated by GRADY Guadalupe for Norman Avina MD Patient seen and examined. Patient continues to make progress. Discussed with Dr. Clinton. Continue parenteral anticoagulation and plan to change to Xarelto on Tuesday. Norman Avina M.D. cc: Norman Avina [facility]ORE[facility]
--- NOTE | 2019-02-23 11:41 | PROGRESS NOTE ---
DATE: 02/23/2019 SUBJECTIVE: This morning Mr. Jacob refers to be doing a whole lot better. No new complaints. No chest pain, shortness of breath is improving, and has not been bleeding from anywhere. OBJECTIVE: Vital signs: Blood pressure is 112/66, pulse of 74, respiration is 14, temperature is 98.2 degrees. General: Mr. Jacob is a 68-year-old gentleman. He is in bed in no distress. HEENT: Mucosa is pink and moist. Anicteric. Acyanotic. Neck: Supple. Chest: Good air entry bilaterally. A few crackles posteriorly. Cardiovascular: Regular rate and rhythm. No murmurs, no rubs, no gallops. GI: Abdomen is soft, globally distended, but nontender. Bowel sounds present. Extremities: No pedal edema. METEOROLOGICAL ENGINEER: Patient is awake, alert and oriented. LABORATORY DATA: CBC is reviewed, is unremarkable. Chemistry is also reviewed. Potassium is 3.2. Rest of chemistry is unremarkable. The patient's PTT is 81.8. ASSESSMENT: 1. Syncope and collapse at home secondary to hypotension from pulmonary embolus. 2. Bilateral pulmonary embolus with saddle associated with deep vein thrombosis and right heart failure. The patient is on heparin drip. 3. Hypertension, controlled. 4. Dyslipidemia, controlled. 5. Acute right heart failure secondary to massive bilateral pulmonary embolus, stable. PLAN: So, in general, I think Mr. Jacob is doing fairly stable. We are going to discontinue the Finley catheter. We are going to transfer him from the ICU to [facility]. He is going to continue with the heparin drip throughout the weekend, and get him on hopefully Xarelto or Eliquis on Tuesday. I have discussed this plan with the patient. He is in agreement. I have also spoken with Dr. Avina who is the Hem/Onc on board, and he is okay with the plan. cc: Freedom Clinton MD
[2019-02-23] MEDS: HEPARIN IV SCH (13:57)
[2019-02-23] MEDS: [UNRECOGNIZED DRUG - OTHER] IV SCH (13:57)
--- NOTE | 2019-02-23 15:55 | PULMONOLOGY PROGRESS NOTE ---
DATE: 02/23/2019 SUBJECTIVE: The patient is awake, alert, and conversant. He denies shortness of breath. He denies chest pain. He is tolerating p.o. intake. OBJECTIVE: Vital signs: The patient has been afebrile for the last 24 hours, blood pressure 130/72, heart rate 93, respiratory rate 16, oxygen saturation 92% on Venturi mask. HEENT: Pupils are equal and reactive. Oropharynx appears clear. Neck: Supple. Chest: Reveals mild decreased breath sounds in the lung bases. Cardiac exam: S1, S2. Abdomen: Obese and soft. Extremities: Reveal trace to 1+ pretibial edema. LABORATORY: Sodium 135, potassium 3.2, chloride 93, bicarbonate 28, BUN 19, creatinine 0.8. White blood count 6.91, hemoglobin 14.0, platelet count 182,000. IMPRESSION: A 68-year-old with: 1. Pulmonary embolus. 2. Acute hypoxemic respiratory failure. 3. Morbid obesity. DISCUSSION: A 68-year-old with problems outlined above. He reports his shortness of breath has diminished or is resolving. RECOMMENDATIONS: 1. Agree with plans for transfer to the floor as outlined by the Hospitalist service. 2. Wean oxygen for hypoxemic respiratory failure as tolerated. 3. Agree with transitioning patient to Xarelto or Eliquis in the near future. cc: Giancarlo Lucas MD
[2019-02-23] MEDS: ULTRAM PO PRN (19:10)
[2019-02-23] MEDS: HYTRIN PO SCH (20:04)
[2019-02-23] MEDS: LYRICA PO SCH (20:04)
[2019-02-23] MEDS: PRAVACHOL PO SCH (20:04)
[2019-02-24 03:54] LABS: HEMATOCRIT 41.5 % (42.0-52.0); HEMOGLOBIN 13.9 g/dL (14.0-18.0); MCH 32.5 PG (27-31); MCHC 33.5 g/dL (33-37); MPV 10.1 FL (7.4-10.4); RBC 4.28 XMIL (4.7-6.1); RDW 12.8 % (11.5-14.5); WBC 6.46 X1000 (4.8-10.8)
[2019-02-24] MEDS: ZANTAC PO SCH ×2 (08:11→20:55)
[2019-02-24] MEDS: LEXAPRO PO SCH (08:11)
[2019-02-24] MEDS: PRILOSEC PO SCH (08:12)
[2019-02-24] MEDS: NORCO-5 PO PRN ×3 (08:12→16:32)
[2019-02-24] MEDS: HEPARIN IV SCH (10:12)
[2019-02-24] MEDS: [UNRECOGNIZED DRUG - OTHER] IV SCH (10:12)
--- NOTE | 2019-02-24 13:12 | HEMO/ONC PROGRESS NOTE ---
DATE: 02/24/2019 HISTORY OF PRESENT ILLNESS: Mr. Jacob is awake and alert this morning, comfortable in bed, watching TV. He denies any complaints. He denies any shortness of breath while lying still on his bed. He states his shortness of breath occurs when he exerts himself in order to sit up or get up. He says otherwise he feels well controlled. He does remain on nasal cannula O2. He is continuing bedrest. He states his appetite is good. He denies any complaints. He had no significant events overnight. OBJECTIVE: Vital signs: Temperature is 97.8, pulse rate 85, respiratory rate 17, blood pressure 152/77, O2 saturation is 94% on 2 L by nasal cannula. He is in 3/10 bilateral foot pain. General: This is a chronically ill appearing gentleman. He is obese with a BMI of 38.8. Awake, alert and oriented, in no acute distress. Skin: Warm, dry, pale. No jaundice noted. No rashes or significant lesions. He does have small abrasions to his hands and feet. ENT: Sclerae is anicteric. PERRLA. Oral mucosa is pink and moist. Cardiovascular: Normal S1 and S2. Heart rate and rhythm are clear. Respiratory: Lung sounds are clear. No adventitious breath sounds noted. No signs of respiratory distress. Mild shortness of breath with exertion. Gastrointestinal: Abdomen is significantly protuberant, distended, soft. Nontender to palpation. Neurologic: No focal motor deficits. DIAGNOSTIC DATA: WBC is 6.46, hemoglobin 13.9, hematocrit 41.5, platelet count 202. ASSESSMENT: 1. Bilateral saddle pulmonary emboli with deep vein thrombosis. 2. Acute hypoxemic respiratory failure. 3. Morbid obesity. PLAN: The patient will remain on IV heparin over the weekend. The patient will be converted to Xarelto possibly Tuesday with a possible discharge as well. We will continue to monitor over the weekend. Keep the patient on bedrest at this time. Dictated by GRADY Guadalupe for Norman Avina MD cc: Norman Avina MD
--- NOTE | 2019-02-24 14:03 | PROGRESS NOTE ---
DATE: 02/24/2019 SUBJECTIVE: This morning Mr. Jacob refers to be doing okay, denies any new complaints. No bleeding. OBJECTIVE: Vital: Blood pressure is 156/78, pulse of 72, respirations 17, temperature is 97.8 degrees. General: Mr. Jacob is a 68-year-old male. He is in bed, in no distress. HEENT: Mucosa is pink and moist. Anicteric. Acyanotic. Neck: Supple. Chest: Clear to auscultation. No crepitations. No rhonchi. Cardiovascular: Regular rate and rhythm. Abdomen: Soft. Extremities: No pedal edema. APPLICATIONS SUPPORT ANALYST: The patient is awake, alert, and oriented. There is no focal neurologic deficit. LABORATORY DATA: The patient's PTT is 88.0. ASSESSMENT: 1. Syncope and collapse at home secondary to PE-induced hypotension. 2. Bilateral PE with saddle characteristics associated with DVTs and right heart failure. The patient is on heparin drip. 3. Hypertension, controlled. 4. Dyslipidemia. 5. Acute right heart failure secondary to massive bilateral PE. PLAN: For now we are going to continue with the heparin drip. There is a plan to transition to oral anticoagulant on Tuesday and discharge the patient. So far, the thrombophilic workup result that we have is all negative. cc: Freedom Clinton MD
--- NOTE | 2019-02-24 19:50 | PULMONOLOGY PROGRESS NOTE ---
DATE: 02/24/2019 SUBJECTIVE: The patient is awake, alert, and conversant. He denies shortness of breath. He is without new complaints. OBJECTIVE: Blood pressure 152/77, heart rate 85, respiratory rate 17, oxygen saturation 94% on 2 L per nasal cannula.HEENT: Pupils are equal and reactive. Oropharynx appears clear. Neck is supple. Chest reveals good air entry bilaterally without wheezing or rhonchi. Cardiac exam: S1, S2. Abdomen is soft. Extremities reveal trace edema. LABORATORY DATA: White blood count 6.46, hemoglobin 13.9, platelet count 202,000. IMPRESSION: A 68-year-old with: 1. Pulmonary embolus. 2. Acute hypoxemic respiratory failure. 3. Morbid obesity. PLAN: 1. Agree with plans to transition the patient to an oral anticoagulation as outlined by Oncology/Hematology. 2. Wean oxygen as tolerated. 3. Long-term, the patient would benefit from weight loss. cc: Giancarlo Lucas MD
[2019-02-24] MEDS: LYRICA PO SCH (20:55)
[2019-02-24] MEDS: HYTRIN PO SCH (20:55)
[2019-02-24] MEDS: PRAVACHOL PO SCH (20:55)
[2019-02-24] MEDS: ULTRAM PO PRN (20:55)
[2019-02-25] MEDS: PRILOSEC PO SCH ×2 (07:51→09:26)
[2019-02-25] MEDS: LEXAPRO PO SCH ×2 (07:51→09:26)
[2019-02-25] MEDS: ZANTAC PO SCH ×3 (07:51→20:32)
[2019-02-25] MEDS: NORCO-5 PO PRN ×2 (07:51→19:00)
[2019-02-25] MEDS: HEPARIN IV SCH (07:52)
[2019-02-25] MEDS: [UNRECOGNIZED DRUG - OTHER] IV SCH (07:52)
--- NOTE | 2019-02-25 11:42 | PROGRESS NOTE ---
DATE: 02/25/2019 SUBJECTIVE: This morning Mr. Jacob refers to be doing okay. No new complaints except some cramping in the lower extremity. The nurses were concerned; his feet were remarkably cold, especially the right lower extremity. OBJECTIVELY: Vitals: Blood pressure is 148/97, pulse of 93, respiration is 18, temperature is 97.6 degrees. General Examination: Mr. Jacob is a 68-year-old gentleman. He is in bed. No distress. HEENT: Mucosa is pink and moist. Anicteric. Acyanotic. Neck: Supple. Chest: Clear to auscultation. No crepitations. No rhonchi. No accessory muscle use. Chest: Good air entry bilateral. Gastrointestinal: Abdomen is soft. It is globally distended but nontender. Bowel sounds are present. No hepatosplenomegaly. Central Nervous System: Patient is awake, alert, and oriented. Musculoskeletal: Lower extremities: No edema. However, they look slightly more congested. The right lower extremity has no pulse on the pedis. Extremely low palpable pulse on the posterior tibialis. The left lower extremity pulses are present, but remarkably low. LABORATORY DATA: PTT is 65.9, which is within the therapeutic range. ASSESSMENT: 1. Syncope and collapse at home secondary to pulmonary emboli-induced hypotension. 2. Bilateral pulmonary emboli with saddle characteristics associated with deep vein thrombosis and right heart strain. Patient is on heparin drip. There is a plan to transition him to p.o. Xarelto tomorrow. 3. Hypertension, controlled. 4. Dyslipidemia. 5. Bilateral lower extremity deep vein thromboses. 6. Acute right heart failure secondary to massive bilateral pulmonary emboli. 7. Imperceptible right lower extremity distal pulses. We will get a duplex ultrasound to check on this. Patient is on heparin drip at this point anyway. cc: Freedom Clinton MD
--- NOTE | 2019-02-25 13:36 | HEMO/ONC PROGRESS NOTE ---
DATE: 02/25/2019 HISTORY OF PRESENT ILLNESS: Mr. Jacob is awake and alert this morning. He remains in bed. He denies shortness of breath. It was noted by the nurses this morning that his feet were extremely cold, particularly his right foot. His right foot has no pedal pulse, extremely low palpable pulse on the posterior tibialis. Left lower extremity pulses are present but low. The patient's states his feet feel like they are burning. They do not feel cold to him. OBJECTIVE: Vital Signs: Temperature 98.2 degrees, pulse rate 85, respiratory rate 17, blood pressure 147/69, O2 saturation 96% on nasal cannula at 2 L. He is in 3/10 bilateral foot pain. Physical Examination: General: A chronically ill-appearing, obese gentleman in no acute distress. HEENT: Mucosa is pink and moist. Eyes are anicteric. Chest: Clear to auscultation. No signs of respiratory distress. Cardiovascular: Normal S1, S2. Heart rate and rhythm regular. Gastrointestinal: Abdomen is protuberant, soft, nontender. Bowel sounds present. Musculoskeletal: Lower extremities show no signs of edema. The soles of his feet are erythemic. Right lower extremity has no pedal pole and a weak posterior tibialis pulse. Left extremity has weak pulses. Both feet are extremely cold, more so on the right. Laboratory Data: PTT 79.6. No other labs done on the patient today. Radiology: We are waiting on a Doppler. ASSESSMENT: 1. Bilateral saddle pulmonary emboli with deep venous thrombosis. 2. Acute hypoxemic respiratory failure. 3. Morbid obesity. PLAN: The patient needs to remain on IV heparin over the weekend. We are awaiting on the results of a Doppler study to determine further care. We will continue to monitor. Dictated by GRADY Guadalupe for Norman Avina MD cc: MD ARDEN Mohan
--- NOTE | 2019-02-25 15:05 | PULMONOLOGY PROGRESS NOTE ---
DATE: 02/25/2019 SUBJECTIVE: The patient is awake, alert, and conversant. He reports chronic pain in his lower extremities, which he has been reporting since admission. He denies dyspnea today. OBJECTIVE: Vital Signs: The patient has been afebrile for the last 24 hours, blood pressure 147/69, heart rate 85, respiratory rate 17, oxygen saturation 96% on 2 L per nasal cannula. HEENT: Pupils are equal and reactive. Oropharynx appears clear. Neck: Supple. Chest: Crackles in both lung bases. Cardiac: Regular rate. Normal S1. Normal S2. Abdomen: Obese and soft. Lower Extremities: Cool to the touch, right greater than left. There is mild erythema, but no cyanosis. LABORATORY DATA: No chemistry, CBC, or ABG today. IMPRESSION: A 68-year-old with: 1. Pulmonary embolus. 2. Hypoxemic respiratory failure. 3. Morbid obesity. 4. Peripheral vascular disease. PLAN: 1. Continue anticoagulation as outlined by Hematology/Oncology. 2. Wean oxygen as tolerated. 3. Recommend weight loss. 4. Agree with vascular studies of the lower extremities. cc: Giancarlo Lucas MD
[2019-02-25] MEDS ORDERED: ZOFRAN IV PRN (17:48)
[2019-02-25] MEDS ORDERED: MIRALAX PO ONE ×2 (20:09→20:10)
[2019-02-25] MEDS: LYRICA PO SCH (20:32)
[2019-02-25] MEDS: HYTRIN PO SCH (20:32)
[2019-02-25] MEDS: PRAVACHOL PO SCH (20:32)
[2019-02-26] MEDS ORDERED: HEPARIN IV SCH (02:49)
[2019-02-26] MEDS ORDERED: [UNRECOGNIZED DRUG - OTHER] IV SCH (02:49)
[2019-02-26] MEDS: NORCO-5 PO PRN ×2 (03:53→09:01)
--- NOTE | 2019-02-26 06:14 | Diag Imaging Result Doc PS360 ---
EXAM: CHEST-PORTABLE HISTORY: Cough, Diminished lung sounds TECHNIQUE: Portable chest single view COMPARISON: 02/20/2019 FINDINGS: The lungs are well expanded. The heart is enlarged. The vessels are not distended. There are no infiltrates. No effusion identified. IMPRESSION: Cardiomegaly. No pneumonia. Electronically signed by Kris Cunningham 02/26/2019 6:11 AM
[2019-02-26] MEDS ORDERED: XARELTO PO SCH (08:00)
[2019-02-26] MEDS: PRILOSEC PO SCH (08:57)
[2019-02-26] MEDS: LEXAPRO PO SCH (08:57)
[2019-02-26] MEDS: ZANTAC PO SCH (08:57)
[2019-02-26] MEDS ORDERED: MIRALAX PO SCH ×2 (09:00)
--- NOTE | 2019-02-26 11:17 | Extremity Venous Study ---
PROCEDURE NAME: Venous U/S Bilateral Legs - 02/20/2019 PROCEDURE PERFORMED: Bilateral lower extremity venous duplex and color flow imaging study using a [employer] Vivid E9 ultrasound system with a 9 L-D transducer. REFERRING PHYSICIAN: Dr. Mondragon. A 68-year-old male. DECK HAND: Keisha Ochoa RVT. INDICATIONS: The patient has been diagnosed with a pulmonary embolus. He has shortness of breath and edema of the lower extremities. Rule out deep venous thrombosis. FINDINGS: The right common femoral vein and its branches, deep and superficial femoral veins were satisfactorily imaged. They had flow through them and were compressible. The right popliteal vein and the deep veins below the right knee were all compressible and had flow through them. The superficial veins of the right lower extremity were compressible throughout their length. The left common femoral vein and its branches, deep and superficial femoral veins were also satisfactorily imaged. They had flow through them and were compressible. Within the left popliteal vein, there is an acute occlusive deep venous thrombosis which extended into the small veins below the left knee. The superficial veins of the left lower extremity were compressible throughout their length. INTERPRETATION: Acute deep venous thrombosis involving the left popliteal vein which is occlusive and extends distally into the small veins below the left knee. There is no evidence of acute deep or superficial venous thrombosis involving the right lower extremity. cc: MD Jatinder Carmona MD
[2019-02-26 13:15] VITALS: BP 148/83
--- NOTE | 2019-02-26 13:20 | HEMO/ONC PROGRESS NOTE ---
DATE: 02/26/2019 SUBJECTIVE: The patient is awake and alert this morning. He denies shortness of breath. He continues to complain of chronic pain in both feet. He denies any other complaints. His foot is now warm. The patient had a good night and has had no significant events. He is to be discharged today and converted to Xarelto. OBJECTIVE: Vital Signs: Temperature 97.5 degrees, pulse rate 64, respiratory rate 14, blood pressure 127/67, O2 saturation 98% on 2 L nasal cannula. Pain: He is in 6/10 bilateral foot pain. General: A chronically ill-appearing obese gentleman, in no acute distress. Weight: BMI 39.5. HEENT: Clear is anicteric. Pupils: PERRLA. Mucosa is pink and moist. Lungs: No signs of respiratory distress. Chest is clear to auscultation. Cardiovascular: Normal S1, S2. Heart rate and rhythm regular. Gastrointestinal: Abdomen is protuberant, soft, nontender. Musculoskeletal: Lower extremity showed no signs of edema. Bilateral feet are now warm to touch. Neurological: Awake, alert, and oriented. No focal motor deficits noted. DIAGNOSTIC STUDIES: PTT 92.6. No other labs done today. Chest x-ray shows no pneumonia, no infiltrates. ASSESSMENT: 1. Bilateral saddle pulmonary emboli with deep vein thrombosis. 2. Acute hypoxic respiratory failure, resolved. 3. Morbid obesity. PLAN: Patient is to be converted to Xarelto and discharged home today. We will follow up with him for an office visit as an outpatient. Dictated by GRADY Guadalupe for Norman Avina MD cc: Norman Avina MD [facility]ITALSt[facility]
--- NOTE | 2019-02-26 14:03 | DISCHARGE SUMMARY ---
ADMISSION DATE: 02/20/2019 DISCHARGE DATE: 02/26/2019 DISPOSITION: Home. FOLLOW UP: 1. Dr. Chandu Ruiz. 2. Dr. Avina. CONSULTATION DURING ADMISSION: 1. Heme-Onc was consulted. Patient was seen by Dr. Avina. 2. Pulmonary Medicine was consulted. Patient was seen by Dr. Hilario. 3. Surgery was consulted. Patient was seen by Dr. Telles. INVASIVE PROCEDURES DONE DURING ADMISSION: None. IMAGING STUDIES OF SIGNIFICANCE: 1. Chest x-ray showed no acute abnormality. 2. A CT scan of the head showed central brain atrophy. No acute intracranial pathology. 3. A pulmonary arteriogram showed bilateral acute PE with moderate clot burden. 4. An echocardiogram showed ejection fraction of 65%, mild right atrial enlargement and moderate right ventricle enlargement with diminished right ventricular systolic function. 5. Doppler ultrasound of the lower extremity did show bilateral deep vein thromboses. ADMISSION DIAGNOSES: 1. Bilateral acute pulmonary embolus. 2. Hypertension. 3. Dyslipidemia. 4. Gastroesophageal reflux disease. DIAGNOSES AT TIME OF DISCHARGE: 1. Syncope and collapse at home secondary to pulmonary emboli induced hypotension. 2. Bilateral pulmonary embolus with saddle characteristics associated with hypotension and right heart failure. 3. History of hypertension. 4. Dyslipidemia. 5. Bilateral lower extremity deep vein thrombosis. 6. Acute right heart failure secondary to massive bilateral pulmonary embolus. 7. Cold lower extremities. DISCHARGE MEDICATIONS: 1. Aspirin 500 mg p.o. 2. Hytrin 5 mg p.o. at bedtime. 3. Pravastatin 20 mg p.o. at bedtime. 4. Glucosamine. 5. Lisinopril 10 mg p.o. daily. 6. Aspirin 81 mg p.o. daily. 7. Ranitidine 150 mg p.o. b.i.d. 8. Omeprazole 20 mg p.o. daily. 9. Multivitamin. 10. Lasix 40 mg p.o. daily. 11. Metoprolol 50 mg p.o. daily. 12. Potassium. 13. Lyrica 75 mg p.o. daily. 14. Tramadol 1 tablet 50 mg p.o. q.6h. 15. Lexapro 10 mg p.o. daily. 16. Xarelto 20 mg p.o. b.i.d. PRESENTING COMPLAINT: Shortness of breath for 3 weeks. HISTORY OF PRESENTING COMPLAINT: Mr. Jacob is a 68-year-old male with history of obesity, dyslipidemia, hypertension, remote history of prostate cancer status post total radical prostatectomy, who came to the emergency department because of falling down and syncope on presentation. Mr. Jacob also gives history of 3 weeks progressive shortness of breath which has been getting worse. Upon presenting to the emergency department, he was evaluated and was found to be hypotensive. Initial workup revealed bilateral PE with saddle characteristics. He was admitted to the ICU for close monitoring. HOSPITAL COURSE: Mr. Jacob was admitted to the ICU, and was started on IV heparin. He tolerated the therapy without any complication. He was subsequently transferred to the [facility] step-down unit once he became hemodynamically stable. Throughout the hospital course, he continues to improve. No chest pain, shortness of breath got better. He was found to have some cold extremities and was concerned of arterial pathology. A duplex ultrasound was done, which we were informed that it was normal. We are still pending the official report. The patient was seen by Pulmonary Medicine as well as Heme-Onc and Surgery. At one point, there was the thought process of possible putting in an IVC filter. Surgery was consulted because the patient had no contraindications for anticoagulation. Surgery recommended just to continue with the anticoagulation. This morning Mr. Jacob refers to be doing a whole lot better. His current vitals show blood pressure 127/67, pulse of 64, respirations 14, and temperature 97.5 degrees. Mr. Jacob is in stable condition for discharge. He is going to follow up with Dr. Avina and Dr. Chandu Ruiz. All the discharge instructions have been discussed with Mr. Jacob. Weight management has also been addressed. TIME SPENT: Time spent for discharge is 38 minutes. cc: MD Chandu Cedeno MD Dr. Lobo Dr. Najjar
--- NOTE | 2019-02-28 13:12 | VASCULAR LAB ---
PROCEDURE NAME: Arterial U/S Bilateral Legs - 02/25/2019 PROCEDURE: This is the bilateral lower extremity arterial ultrasound at rest. INDICATION: The patient has had a left lower extremity deep venous thrombosis with a saddle pulmonary embolus. His right foot on exam was very cold. He had small sores involving both feet with decreased pulses. FINDINGS: There was good arterial flow in the right common femoral artery and its branches, the deep and superficial femoral arteries. There was normal arterial flow in the right popliteal artery and there was arterial flow in the 3 small arteries below the knee on the right. The left common femoral artery and its branches, the deep and superficial femoral arteries were also imaged with normal arterial flow extending into the left popliteal artery and the small arteries below the knee on the left. INTERPRETATION: Normal resting arterial flow of the bilateral lower extremities. cc: MD Freedom Carmona MD
== END 2019-02-26 14:15 | disposition home or self-care (01) | DRG 175 ==
LOC: SUPCPDRO → ED 14:32 → SUATTDRO 20:59 → EDIPHOLD 20:59 → ICU 02-21 01:20 → 3S 02-23 13:55
PROVIDERS: ATTEND Internal Medicine